=== PATIENT | male | born 1995 | race African-American/Black ===

== ENCOUNTER 2025-04-04 10:57 | Emergency (ER) | payer OTHER ==
[~2025-04-04] VITALS: Ht 175.3 cm; Wt 82.0 kg
[2025-04-04] MEDS: IBUPROFEN 800MG TABLET PO ONE (12:56)
[2025-04-04] MEDS: LIDOCAINE HCL 1% 20ML VIAL INL ONE (12:58)
[2025-04-04] MEDS: BACITRACIN ZINC OINT UDPKT TOP ONE (13:00)
[2025-04-04 13:24] VITALS: TEMP 36.7
[2025-04-04] MEDS ORDERED: CEPH500T MT (13:26)
[2025-04-04] MEDS ORDERED: IBUP-2030 MT (13:26)
[2025-04-04] MEDS ORDERED: CEFAZOLIN SODIUM 2000MG/VIAL IJ ONE (13:30)
[2025-04-04 13:55] VITALS: BP 128/78; PULSE 70; RESP 15; O2SAT 100
[2025-04-04] MEDS: CEFAZOLIN SODIUM 1000MG/VIAL IM SCH (14:20)
== END 2025-04-04 14:26 ==
LOC: ER 10:57
DX: S62.600A Fracture of unspecified phalanx of right index finger, initial encounter for closed fracture (principal); S61.210A Laceration without foreign body of right index finger without damage to nail, initial encounter; X58.XXXA Exposure to other specified factors, initial encounter; Y93.89 Activity, other specified; Y92.89 Other specified places as the place of occurrence of the external cause; Y99.8 Other external cause status
CPT/HCPCS: 73140; 29130; 96372; 99283; J0690; Z7610 ×2